=== PATIENT | male | born 1950 | race Caucasian/White ===

== ENCOUNTER 2017-07-22 09:55 | Outpatient (CLI) | payer MEDICARE | END 2017-07-22 09:56 | disposition home or self-care (01) | LOC: CTENTCT 09:55 | PROVIDERS: ATTEND Otolaryngology Plastic Surgery within the Head & Neck | DX: J32.9 Chronic sinusitis, unspecified (principal) | CPT/HCPCS: 70486 ==

== ENCOUNTER 2017-10-12 11:57 | Emergency (ER) | payer MEDICARE ==
[2017-10-12] MEDS ORDERED: Lorazepam 1 MG TAB ONE (12:37)
[2017-10-12] MEDS ORDERED: HYDROcodone/Acetaminophen 10/325 mg Tablet ONE (12:37)
--- NOTE | 2017-10-12 13:54 | CT ---
CT CERVICAL SPINE NONCONTRAST: Date: 10/12/17 HISTORY: Neck injury. Prior surgery. FINDINGS: Anterior fixation is in place at the C6-7 level. Vertebral body height and alignment are maintained. Osteophytosis present throughout the vertebral bodies and facets. Cervicothoracic junction intact. Th ere is multilevel central canal and foraminal stenoses. No acute fracture or dislocation. IMPRESSION: Postoperative and degenerative changes cervical spine. No acute osseous abnormalities are demonstrate d. POS: [facility]
== END 2017-10-12 13:49 | disposition home or self-care (01) ==
LOC: SCSER 11:57
DX: M43.6 Torticollis (principal); M62.838 Other muscle spasm; I10 Essential (primary) hypertension; N40.0 Benign prostatic hyperplasia without lower urinary tract symptoms; Z79.899 Other long term (current) drug therapy
CPT/HCPCS: 72125

== ENCOUNTER 2018-04-06 17:07 | Emergency (ER) | payer MEDICARE ==
[2018-04-06] MEDS ORDERED: Lidocaine 1% PF 5 ML VIAL ONE (17:35)
[2018-04-06] MEDS ORDERED: Lidocaine 1% w/Epinephrine 1:100K 20 ML VIAL ONE (17:37)
[2018-04-06] MEDS ORDERED: Adacel (T-DAP) 0.5 ML VIAL ONE (17:45)
[2018-04-06] MEDS ORDERED: Bacitracin Zinc 1 Packet ONE (18:21)
== END 2018-04-06 18:28 | disposition home or self-care (01) ==
LOC: SCSER 17:07
DX: S61.213A Laceration without foreign body of left middle finger without damage to nail, initial encounter (principal); I10 Essential (primary) hypertension; Z23 Encounter for immunization; W29.8XXA Contact with other powered hand tools and household machinery, initial encounter; Y92.009 Unspecified place in unspecified non-institutional (private) residence as the place of occurrence of the external cause
CPT/HCPCS: 12001; 90471; 90715; J2001

== ENCOUNTER 2018-04-16 14:49 | Observation (INO) | payer MEDICARE ==
--- NOTE | 2018-04-16 15:49 | RAD ---
RONTAL VIEW CHEST: Indication: Dyspnea. FINDINGS: There is elevation of the right hemidiaphragm with adjacent linear density which indicates atelectasi s. Left lung is clear. Cardiac silhouette is accentuated with portable technique. IMPRESSION: Elevation of the right hemidiaphragm with adjacent, mild atelectasis. POS: [facility]
[2018-04-16 15:58] LABS: #Basophils 0.1 thou/uL (0.0-0.2); #Eosinphils 0.3 thou/uL (0.0-0.7); #Lymphocytes 2.1 thou/uL (1.20-3.40); #Monocytes 0.9 thou/uL (0.11-0.59); #Neutrophils 4.9 thou/uL (1.40-6.50); %Basophils 1.1 % (0.0-1.0); %Eosinophils 3.2 % (0.0-10.0); %Lymphocytes 25.3 % (21.0-51.0); %Monocytes 10.9 % (0.0-10.0); %Neutrophils 59.6 % (42.0-75.0); Hemoglobin 15.2 g/dL (14.0-18.0); Mean Corpuscular HGB CONC 32.5 g/dL (32.0-36.0); Mean Corpuscular Hemoglobin 30.9 pg (27.0-31.0); Mean Platelet Volume 7.7 fL (7.4-10.4); Platelet Count 221 thou/uL (130-400); RBC Distribution Width 12.1 % (11.5-14.5); Red Blood Cell (RBC) Count 4.91 mill/uL (4.70-6.10); White Blood Cell (WBC) Count 8.2 thou/uL (4.8-10.8)
[2018-04-16 16:20] LABS: ALT (SGPT) 29 U/L (8-55); AST (SGOT) 27 U/L (5-34); Albumin 4.4 g/dL (3.4-4.8); Alkaline Phosphatase 76 U/L (40-150); Anion Gap 13 mmol/L (10-20); BUN (Urea Nitrogen) 15 mg/dL (8.4-25.7); Bilirubin, Total 0.4 mg/dL (0.2-1.2); Calc. Creatinine Clearance 0 mL/min (70-130); Calcium 9.6 mg/dL (7.8-10.44); Carbon Dioxide 31 mmol/L (23-31); Chloride 101 mmol/L (98-107); Estimated GFR-MDRD 65; Globulin 3.1 g/dL (2.4-3.5); Glucose 113 mg/dL (80-115); Potassium 4.6 mmol/L (3.5-5.1); Protein, Total 7.5 g/dL (5.8-8.1); Sodium 140 mmol/L (136-145)
[2018-04-16 16:24] LABS: CKMB 1.3 ng/mL (0-6.6); Troponin I Less than 0.010 ng/mL (< 0.028)
[2018-04-16] MEDS ORDERED: Iopamidol 370 76% 50 ML VIAL FS ONE (16:31)
--- NOTE | 2018-04-16 17:47 | CT ---
CTA CHEST WITH CONTRAST WITH 3D VOLUME RENDERING CT ABDOMEN WITH CONTRAST 04/16/18 INDICATION: Dyspnea. FINDINGS: There is no evidence of a large, central filling defect of the pulmonary arteries. Scattered areas of mild pulmonary parenchymal heterogeneity are present, some of which relates to motion artifact. Ther e are also scattered areas of linear parenchymal density indicative of atelectasis. There is no effus ion or pneumothorax. Mild vascular calcification is present. Partially imaged intra-abdominal cathete r related to gastric band is seen. Low attenuation of the imaged hepatic parenchyma is compatible wit h hepatic steatosis. Otherwise the imaged abdomen reveals no evidence of an acute process. Nodular de nsity adjacent the medial aspect of the anterior spleen indicates splenule. IMPRESSION: 1. No evidence of a large, central pulmonary embolus. 2. Additional details are described above. POS: [facility]
[2018-04-16] MEDS ORDERED: Ondansetron PF 4 MG/2 ML Vial IVP PRN (18:55)
[2018-04-16] MEDS ORDERED: Acetaminophen 650 MG Suppository PR PRN (18:55)
[2018-04-16] MEDS ORDERED: Nitroglycerin 0.4 MG TAB (25 Tab Bottle) PO PRN (18:55)
[2018-04-16] MEDS ORDERED: Senokot S 8.6-50 MG TAB PO PRN (18:55)
--- NOTE | 2018-04-16 19:29 | HP ---
DATE OF ADMISSION: 04/16/2018 PRIMARY CARE PROVIDER: Toney Joseph D.O. CHIEF COMPLAINT: Shortness of breath. HISTORY OF PRESENT ILLNESS: Mr. Siu is a pleasant 67-year-old gentleman, who was seen at [facility] on 04/16/2018. He was sent to the emergency room by his primary care provider because he has been having shortness o f breath over the last 2-3 weeks. 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 He denies having any chest pain. He report s that his shortness of breath is worse with exertion. He denies having any orthopnea or paroxysmal nocturnal dyspnea. He denies any fevers. He reports that about 1.5 weeks ago, he had GI symptoms of nausea and vomiting. He also reports that at that time, he had nasal congestion and was spitting gr een phlegm. These symptoms lasted 5 days and resolved. He also reports that he has been gradually gaining weight. He has a history of gastric banding. He reports some discomfort over the left upper quadrant, which has been going on for a while. REVIEW OF SYSTEMS: All other systems reviewed and found to be negative. PAST MEDICAL HISTORY: Hypertension, benign prostate hypertrophy, rosacea and obstructive sleep apnea syndrome, on CPAP therapy. PAST SURGICAL HISTORY: Right knee replacement, neck surgery, right eye surgery status post injury, r ight arm surgery, left shoulder surgery, appendectomy, tonsillectomy and laparoscopic gastric banding . SOCIAL HISTORY: Occasional alcohol use. No tobacco use or recreational drug use. FAMILY HISTORY: Significant for lung cancer in his father. CODE STATUS: I discussed his code status. He is full code. ALLERGIES: No known drug allergies. CURRENT MEDICATIONS: Lovastatin 50 mg daily, terazosin 10 mg 2 times a day and doxycycline as needed . PHYSICAL EXAMINATION: GENERAL: Mr. Siu is awake and alert, not in acute distress. He is obese. VITAL SIGNS: Blood pressure is 144/86, pulse 85, respiratory rate 18 and oxygen saturation 95% on ro om air. He is afebrile. EYES: No scleral icterus. No conjunctival pallor. ENT: Moist mucosal membranes. No oropharyngeal erythema or exudates. NECK: Supple, nontender, trachea is midline. RESPIRATORY: Accessory muscles of breathing are not active. Chest wall movements are symmetric bila terally. LUNGS: Clear to auscultation without wheeze, rhonchi or crepitations. CARDIOVASCULAR: S1 and S2 are heard, regular. Peripheral pulses palpable. No carotid bruit, no per icardial rub. ABDOMEN: Soft, distended, mild left upper quadrant tenderness. No guarding or rigidity. Bowel soun ds are heard. NEUROLOGIC: Cranial nerves II-XII are intact. Deep tendon reflexes are 2+. MUSCULOSKELETAL: Power is 5/5 in all 4 extremities. SKIN: No rashes or subcutaneous nodules. Rosacea lesions on the face. EXTREMITIES: He has trace bilateral lower extremity edema, worse on the right. LYMPHATIC: No cervical lymphadenopathy. PSYCHIATRIC: Normal mood, normal affect. The patient is oriented to person, place and time. LABORATORY DATA: Mr. Siu's labs and investigations were reviewed. I reviewed his electrocardi ogram, which shows normal sinus rhythm, no ST changes to suggest an acute coronary syndrome. I also reviewed his chest x-ray, which does not show any pulmonary infiltrates. He does have elevation of t he right hemidiaphragm. CT angiogram of the chest did not show any evidence of large central pulmona ry embolus. He has scattered areas of linear parenchymal density indicative of atelectasis. He also appears to have hepatic steatosis. He appears to have a splenule. He has an unremarkable CBC, elevated D-dimer of 1.10, normal comprehensive metabolic profile, normal troponin I and normal BNP. ASSESSMENT AND PLAN: Mr. Siu is a pleasant 67-year-old gentleman who was seen at [facility] on 04/16/2018. His problem list includes: 1. Shortness of breath: Etiology is unclear at this time. He has a normal BNP and an unremarkable CT scan of the chest. It is possible that this is anginal equivalent. We will admit the patient on observation status for stress test. We will also check 2D echocardiogram to rule out any valvular ab normalities or pericardial effusion. 2. Benign prostate hypertrophy: I will continue home medications once clarified. 3. Dyslipidemia: We will continue statin. 4. Rosacea: The patient does not appear to have a flare, although he has a few lesions on his face. If he develops a flare, we will start doxycycline. Many thanks for allowing me to participate in your patient's care. Please feel free to contact me wi th any questions or concerns. LEVEL OF COMPLEXITY: High. LEVEL OF RISK: High.
[2018-04-16 19:41] VITALS: BMI 41.1
[2018-04-16 19:49] LABS: Troponin I Less than 0.010 ng/mL (< 0.028)
[2018-04-16 22:46] LABS: Troponin I Less than 0.010 ng/mL (< 0.028)
[2018-04-17 04:25] LABS: #Basophils 0.1 thou/uL (0.0-0.2); #Eosinphils 0.4 thou/uL (0.0-0.7); #Lymphocytes 2.1 thou/uL (1.20-3.40); #Monocytes 0.8 thou/uL (0.11-0.59); #Neutrophils 4.1 thou/uL (1.40-6.50); %Basophils 1.2 % (0.0-1.0); %Eosinophils 5.5 % (0.0-10.0); %Monocytes 11.1 % (0.0-10.0); %Neutrophils 54.2 % (42.0-75.0); Hemoglobin 14.4 g/dL (14.0-18.0); Mean Corpuscular HGB CONC 32.9 g/dL (32.0-36.0); Mean Corpuscular Hemoglobin 31.3 pg (27.0-31.0); Mean Corpuscular Volume 95.1 fL (78.0-98.0); Mean Platelet Volume 7.8 fL (7.4-10.4); Platelet Count 206 thou/uL (130-400); RBC Distribution Width 12.2 % (11.5-14.5); Red Blood Cell (RBC) Count 4.61 mill/uL (4.70-6.10); White Blood Cell (WBC) Count 7.5 thou/uL (4.8-10.8)
[2018-04-17] MEDS: Acetaminophen 325 MG TAB PO PRN ×2 (04:47→11:33)
[2018-04-17 05:00] LABS: Anion Gap 10 mmol/L (10-20); BUN (Urea Nitrogen) 19 mg/dL (8.4-25.7); Calc. Creatinine Clearance 156 mL/min (70-130); Calcium 9.1 mg/dL (7.8-10.44); Carbon Dioxide 28 mmol/L (23-31); Chloride 103 mmol/L (98-107); Estimated GFR-MDRD 82; Glucose 112 mg/dL (80-115); Potassium 4.3 mmol/L (3.5-5.1); Sodium 137 mmol/L (136-145)
[2018-04-17] MEDS ORDERED: Aspirin 325 MG TAB PO SCH (08:00)
[2018-04-17 08:04] VITALS: TEMP 97.7
[2018-04-17] MEDS ORDERED: Prevnar 13-Val Conj/PF 0.5 ML SYRINGE IM ONE (09:00)
[2018-04-17] MEDS ORDERED: Enoxaparin Sodium 40 MG/0.4 ML SYRINGE SC SCH (09:00)
[2018-04-17] MEDS ORDERED: Regadenoson 0.4 MG/5 ML SYRINGE ONE (10:22)
[2018-04-17] MEDS ORDERED: Terazosin HCl 5 MG CAP PO SCH ×2 (11:30→21:00)
[2018-04-17] MEDS ORDERED: Losartan 25 MG TAB PO SCH (11:30)
[2018-04-17 11:58] VITALS: BP 159/75
--- NOTE | 2018-04-17 13:59 | NM ---
STRESS ONLY NUCLEAR MEDICINE CARDIAC SCAN WITH EJECTION FRACTION AND WALL MOTION: Date: 04/17/18 HISTORY: 67-year-old male with shortness of breath, questionable angina. TECHNIQUE: Lexiscan sestamibi study was performed with stress only. Patient was injected with 31.2 mCi technetiu m-99m sestamibi intravenously for stress only imaging. FINDINGS: No scan evidence for infarct or ischemia. LHR is 0.35. EDV is 90 mL. Ejection fraction is 67%. MYOCARDIAL PERFUSION WALL MOTION: Wall motion is normal. IMPRESSION: Unremarkable stress only nuclear medicine cardiac SPECT with ejection fraction and wall motion. POS: [facility]
--- NOTE | 2018-04-17 14:27 | PDOC.EVN ---
Event Note - Event Note Event Note: care and plan discussed with Mika Urban NP
[2018-04-18] MEDS ORDERED: Losartan 25 MG TAB PO SCH (09:00)
--- NOTE | 2018-04-18 14:02 | DIS ---
DATE OF ADMISSION: 04/16/2018 DATE OF DISCHARGE: 04/17/2018 PRIMARY CARE PHYSICIAN: Dr. Toney Joseph. PROCEDURES: 1. The patient had a nuclear stress test, chemical Lexiscan study with stress only, scan findings: No evidence of infarct or ischemia. Ejection fraction is 67%. Wall motion is normal. Impression was unremarkable stress only, nuclear cardiac SPECT with ejection fraction and wall motion. The patient also had a CT chest angio, which showed no evidence of a large central pulmonary emboli. 2. Scattered areas of linear parenchymal density indicative of atelectasis. No effusion or pneumothorax. The patient also had a chest x-ray, which showed elevation of right hemidiaphragm with adjacent mild atelectasis. DISCHARGE DIAGNOSES: 1. Shortness of breath, noncardiac in nature. 2. Benign prostatic hypertrophy without lower tract symptoms. 3. Hyperlipidemia. 4. Rosacea. PHYSICAL EXAMINATION: GENERAL: On day of discharge, Mr. Siu is awake, alert, not in any acute distress. VITAL SIGNS: Temperature 98.4, pulse 76, respirations 12, 94% on room air. He is afebrile. EYES: Pupils are equal, reactive to light. Extraocular muscles are intact. ENT: Moist mucosal membranes. NECK: Supple, nontender. Trachea is midline. RESPIRATORY: Accessory muscles of breathing are not active. Chest wall movements are symmetrical. Breath sounds are clear bilaterally. CARDIOVASCULAR: S1 and S2, regular rhythm. Peripheral pulses are palpable. ABDOMEN: Soft, nontender and nondistended. NEUROLOGIC: Cranial nerves II-XII are intact. No focal sensory changes. MUSCULOSKELETAL: Power is 5/5 in all extremities. SKIN: No rashes, has mild rosacea lesions on the face. EXTREMITIES: Trace bilateral lower edema, worse on the right. LYMPHATIC: No lymphadenopathy. PSYCHIATRIC: Normal mood and affect. The patient is alert to person, place, and time. HOSPITAL COURSE: The patient was admitted through the emergency room who was sent by his primary care provider because he had been having shortness of breath over the last 2-3 weeks. 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 He denies any chest pain. He denies any orthopnea or nocturnal dyspnea. He denies any fevers. He reports about a week and a half ago, he had some GI symptoms of nausea, vomiting along with some nasal congestion and spitting up green phlegm. Reports that these symptoms have lasted about 5 days and resolved. He reports that he has also been gradually gaining some weight. Has a history of gastric banding. He was admitted to the observation unit for a stress test which was negative. An echo, it was decided not to be ordered due to the negative stress test and considered noncontributory to present admission. The patient could have an echocardiogram done on an outpatient basis as needed. The patient also had three troponins which were negative. CTA of the chest which was negative for PE. Vital signs have remained within normal limits. The patient will be discharged home to follow up with Dr. Zaragoza for further management as needed. Home medications will be continued. These include lovastatin 50 mg p.o. daily, terazosin 10 mg 2 times daily and doxycycline as needed. ALLERGIES: LACTOSE INTOLERANT. DISPOSITION CONDITION: Stable. DISCHARGE INSTRUCTIONS: Patient will be discharged home. Referral, the patient to see Dr. Joseph within the next week. ETHEL
== END 2018-04-17 15:14 | disposition home or self-care (01) ==
LOC: ERS 14:49 → 2SW 19:30
PROVIDERS: ADMIT Internal Medicine; ATTEND Internal Medicine
DX: R06.02 Shortness of breath (principal); N40.0 Benign prostatic hyperplasia without lower urinary tract symptoms; G47.33 Obstructive sleep apnea (adult) (pediatric); L71.9 Rosacea, unspecified; I10 Essential (primary) hypertension; R10.12 Left upper quadrant pain; E73.9 Lactose intolerance, unspecified; Z79.899 Other long term (current) drug therapy; Z98.84 Bariatric surgery status; Z99.89 Dependence on other enabling machines and devices
CPT/HCPCS: 71045; 71275; 78452; 80048; 80053; 82553; 83880; 84484 ×2; 85025 ×2; 85379; 90670; 93005; 93017; 96372; 99285; A9500; G0009; G0378 ×2; 36415; 90471; 99214; G0463; J1650; J2785

== ENCOUNTER 2018-04-24 15:16 | Outpatient (CLI) | payer MEDICARE ==
--- NOTE | 2018-04-24 16:01 | ULT ---
ULTRASOUND WITH DOPPLER DUPLEX VENOUS LOWER EXTREMITY BILATERAL 04/24/18 CPT: 31665 ICD-10-PCS: B54D HISTORY: Edema. TECHNIQUE: Color flow Doppler, spectral waveform analysis of pulsed Doppler, and stuart-scale imaging with kisha ailyn and augmentation, were used to evaluate the bilateral common femoral, femoral, popliteal, engagement director ior tibial, and superficial femoral, veins; and the proximal portions of the profunda femoral and gre ater saphenous, veins. FINDINGS: Appropriate compressibility and flow within the imaged deep vein system of each lower extremity. IMPRESSION: No DVT. POS: [facility]
== END 2018-04-24 15:17 | disposition home or self-care (01) ==
LOC: BICULT 15:16
PROVIDERS: ATTEND Family Medicine
DX: R60.0 Localized edema (principal)
CPT/HCPCS: 93970

== ENCOUNTER 2018-05-07 13:22 | Outpatient (CLI) | payer MEDICARE ==
--- NOTE | 2018-05-07 15:37 | MRI ---
LUMBAR SPINE MRI WITHOUT IV CONTRAST: 05/07/18 HISTORY: 67-year-old male with history of cervical spondylosis with myelopathy, acute low back pain, M54. 5. Generalized disc desiccation changes and ligament and facet hypertrophic changes are noted. Conus med ullaris region is unremarkable terminating at L1-L2. L1-L2 demonstrates no significant canal or foraminal stenosis. L2-L3: Mild lateral recess stenosis without significant foraminal stenosis. L3-L4: Mild lateral recess stenosis and mild bilateral foraminal stenosis. L4-L5: Diffuse disc bulging with more marked ligament and facet hypertrophic changes with moderate ce ntral canal and moderate to severe lateral recess stenosis and moderate bilateral foraminal stenosis, worse on the left side. Mild central type I end plate changes involving the superior end plate of L5 . L5-S1: No significant central canal stenosis. Moderate bilateral foraminal stenosis. IMPRESSION: Variable severity multilevel canal, lateral recess, and foraminal stenosis most marked at L4-L5 with some minimal type I end plate changes involving the superior end plate of L5. POS: [facility]
== END 2018-05-07 13:23 | disposition home or self-care (01) ==
LOC: TBSIIMAG 13:22
PROVIDERS: ATTEND Neurological Surgery
DX: M54.5 Low back pain (principal); M48.061 Spinal stenosis, lumbar region without neurogenic claudication
CPT/HCPCS: 72148

== ENCOUNTER 2018-05-14 09:03 | Outpatient (CLI) | payer MEDICARE ==
[2018-05-14] MEDS ORDERED: Gadobenate Dimeglumine 529 MG/1 ML (20ML VIAL) ONE (10:45)
--- NOTE | 2018-05-14 12:24 | MRI ---
MRI CERVICAL SPINE WITH AND WITHOUT CONTRAST: HISTORY: Previous cervical fusion. Cervical radiculopathy. Spondylosis with myelopathy. COMPARISON: None. CORRELATION: CT cervical spine from 10/12/2017. TECHNIQUE: Pre and post contrast cervical spine MRI is performed. Multisequential, multiplanar imaging is perfo rmed. FINDINGS: There is appropriate T1 marrow signal intensity of the cervical vertebrae. Cervical spine vertebral body height is maintained. There is no fracture. No significant STIR hyperintensity to suggest vert ebral body edema or ligamentous injury. There is an anterior fusion plate with a transvertebral body screw at C6 and C7. There is a balloon plug at the C6-C7 disk space with what appears to be partial fusion of the C6-C7 disk space. There is 2.8 mm of anterolisthesis of C4 upon C5 and 2.1 mm of anterolisthesis of C5 upon C6. The visualized brain parenchyma, cervicomedullary junction, cervical cord, and upper thoracic cord mustafa ve normal size and signal intensity. On the post contrast images, there is no abnormal enhancement of the vertebral bodies. No abnormal e nhancement of the visualized brain parenchyma, cervicomedullary junction, cervical cord, or upper tho racic cord. C2-C3: No significant central canal stenosis. The right neural foramen is patent. Mild left forami nal narrowing due to left facet and uncovertebral hypertrophy. C3-C4: Broad-based disk bulge with a central disk protrusion. There is mass effect upon the ventral thecal sac. Subarachnoid space is maintained. No significant central canal stenosis. The right ne ural foramen is patent. Mild left foraminal narrowing due to uncovertebral and facet hypertrophy. C4-C5: Broad-based disk bulge with a central component that abuts the thecal sac. The ventral subar achnoid space is maintained. No significant mass effect upon the cervical cord. No significant cent ral canal stenosis. The right neural foramen is patent. Mild left foraminal narrowing due to left u ncovertebral hypertrophy. C5-C6: There is a broad-based disk bulge that deforms the ventral thecal sac and deforms the ventral cord. No cord signal abnormality. Mild central canal stenosis. The right neural foramen is mildly narrowed due to right uncovertebral hypertrophy. The left neural foramen is patent. C6-C7: There appears to be a broad-based osteophyte ridge, which abuts the thecal sac. Minimal defo rmity of the ventral thecal sac and ventral cord. Mild central canal stenosis. Hypertrophic changes in the right uncovertebral joint result in mild right foraminal narrowing. The left neural foramen is patent. C7-T1: There is a small central disk bulge. No significant central canal stenosis. Mild bilateral neural foraminal narrowing. IMPRESSION: 1. Fusion changes of the cervical spine, as above. There is grade 1 anterolisthesis of C4 upon C5 a nd of C5 upon C6. 2. Varying degrees of central canal stenosis and foraminal narrowing, on the basis of degenerative c hange. POS: [facility]
== END 2018-05-14 09:04 | disposition home or self-care (01) ==
LOC: TBSIIMAG 09:03
PROVIDERS: ATTEND Neurological Surgery
DX: M47.12 Other spondylosis with myelopathy, cervical region (principal); M43.12 Spondylolisthesis, cervical region; M48.02 Spinal stenosis, cervical region; M50.022 Cervical disc disorder at C5-C6 level with myelopathy; M50.03 Cervical disc disorder with myelopathy, cervicothoracic region; Z98.1 Arthrodesis status
CPT/HCPCS: 72156; 82565; A9579

== ENCOUNTER 2018-10-02 08:33 | Outpatient (CLI) | payer MEDICARE ==
[2018-10-02] MEDS ORDERED: ISOVUE-370 76%-LOCM 1 ML ONE (11:13)
--- NOTE | 2018-10-02 11:13 | CT ---
CT OF THE ABDOMEN AND PELVIS WITHOUT AND WITH CONTRAST: COMPARISON: None. HISTORY: Microscopic hematuria. TECHNIQUE: Multiple contiguous axial images were obtained in a CT of the abdomen and pelvis without and with IV contrast. Postcontrast images were obtained in nephrographic and excretory phases. Sagittal and cor onal reformats were performed. FINDINGS: There is a 1.8 cm cyst in the right kidney. No solid renal masses are seen. No calcifications are s een in either kidney. No hydronephrosis is seen. Both renal collecting systems are unremarkable wit hout filling defects. The urinary bladder is unremarkable. The patient is status post gastric band procedure with the band at the gastroesophageal junction. Th e liver, gallbladder, adrenal glands, spleen, and pancreas are unremarkable. No free air or free fluid are seen in the abdomen or pelvis. There is a subtle stranding appearance of the small bowel mesentery which is nonspecific. No abdominal or pelvic lymphadenopathy are seen. Degenerative changes are seen in the spine. The visualized inferior thorax is unremarkable. IMPRESSION: 1. Right renal cyst. 2. Nonspecific stranding change of the small mesentery may e normal for this patient. This can also be seen with sclerosing mesenteritis. POS: [facility]
== END 2018-10-02 08:34 | disposition home or self-care (01) ==
LOC: BICCT 08:33
PROVIDERS: ATTEND Urology
DX: R31.29 Other microscopic hematuria (principal); N28.1 Cyst of kidney, acquired
CPT/HCPCS: 74178; 82565; Q9966

== ENCOUNTER 2018-10-03 08:29 | Outpatient (CLI) | payer MEDICARE ==
--- NOTE | 2018-10-03 08:44 | RAD ---
Chest 2 views HISTORY: Dyspnea. COMPARISON: 04/16/2018. FINDINGS: Cardiac silhouette and pulmonary vasculature are unremarkable. Mediastinum is midline with postoperative changes of the cervical spine. Linear atelectasis/scarring at the right lung base is stable. Slight elevation of the right hemidiaphragm is unchanged in appearance. No confluent airspace consolidation, pneumothorax, or pleural fluid are apparent. Degenerative changes of the thoracic spine. IMPRESSION: Chronic-type findings are stable. No active cardiopulmonary abnormalities are demonstrate d.
== END 2018-10-03 08:30 | disposition home or self-care (01) ==
LOC: RAD-FRANK 08:29
PROVIDERS: ATTEND Nurse Practitioner Family
DX: R06.02 Shortness of breath (principal); M47.814 Spondylosis without myelopathy or radiculopathy, thoracic region; J98.4 Other disorders of lung; Q79.1 Other congenital malformations of diaphragm
CPT/HCPCS: 71046

== ENCOUNTER 2018-10-06 12:19 | Outpatient (CLI) | payer MEDICARE ==
[2018-10-06] MEDS ORDERED: Iopamidol 370 76% 100 ML VIAL ONE (13:42)
--- NOTE | 2018-10-06 15:28 | CT ---
CT PULMONARY ANGIOGRAM CHEST WITH 3D RENDERING: HISTORY: Elevated D-dimer, shortness of breath. FINDINGS: There is evidence for nonspecific bilateral mosaic appearance to the lung zones. Linear parenchymal changes noted in both bases worse in the right base with some right hemidiaphragm elevation, evidence for some subsegmental atelectasis and/or chronic change. There is minimal motion artifact with some degradation of image quality, particularly in evaluating t he smaller distal pulmonary artery branches. No convincing CT evidence for acute pulmonary embolism. No pleural effusion or pericardial effusion. Lap band in place. IMPRESSION: No convincing CT evidence for acute pulmonary embolism. Minimal parenchymal changes in the right bas e. Somewhat mosaic appearance to the appearance of the chest. Little change from prior exam, 018. POS: [facility]
== END 2018-10-06 12:20 | disposition home or self-care (01) ==
LOC: CT 12:19
PROVIDERS: ATTEND Nurse Practitioner Family
DX: R06.02 Shortness of breath (principal); R79.1 Abnormal coagulation profile
CPT/HCPCS: 71275; Q9967

== ENCOUNTER 2019-02-13 10:27 | Outpatient (CLI) | payer MEDICARE ==
--- NOTE | 2019-02-13 13:18 | RAD ---
CERVICAL SPINE AP LATERAL STANDARD: Date: 02/13/19 INDICATION: Pain. FINDINGS: There is ACDF of C6-7. No acute hardware complication identified. Lateral masses of C1 are appropriat hilary aligned. Dens is intact where visualized. There is moderate multilevel degenerative change throug hout the cervical spine with multilevel osseous fusion from bridging osteophytes. IMPRESSION: Prominent degenerative change of the postoperative cervical spine, without evidence of acute fracture . POS: [facility]
== END 2019-02-13 10:28 | disposition home or self-care (01) ==
LOC: RAD-FRANK 10:27
PROVIDERS: ATTEND Nurse Practitioner Family
DX: M54.2 Cervicalgia (principal); M47.812 Spondylosis without myelopathy or radiculopathy, cervical region; Z98.890 Other specified postprocedural states
CPT/HCPCS: 72040

== ENCOUNTER 2019-03-26 07:43 | Outpatient (CLI) | payer MEDICARE ==
--- NOTE | 2019-03-26 09:50 | MRI ---
MRI CERVICAL SPINE NONCONTRAST: 03/26/2019 HISTORY: A 68-year-old male with ICD-10: M54.12, cervical radiculopathy. Cervicalgia radiating to right elbo w with hypesthesia (numbness). FINDINGS: Reversal of curvature of mid-lower cervical spine. Vertebral body heights are maintained. Cervical sp inal cord size and signal normal. C1-C2: No high grade central stenosis. C2-C3: Disk space maintained. Mild ligamentum flavum thickening. Mild central spinal canal stenosis. No right neural foraminal stenosis. Moderate bilateral facet DJD. Mild left neural foraminal stenosis . C3-C4: Disk space maintained. Thickened ligamentum flavum indents the dorsal surface of the spinal co rd. Mild to moderate central spinal canal stenosis. Severe right facet DJD. Mild bone marrow edema in volving the right C3-C4 facet complex. Moderate left facet DJD. Moderate right neural foraminal steno sis. Moderate to severe left neural foraminal stenosis. C4-C5: Bony hypertrophy of left facet complex without bone marrow edema. Probable ankylosis across th e left facet joint. Mild to moderate right facet DJD. Minimal grade 1 anterolisthesis of C4 on C5. Di sk space maintained. Mild central spinal canal stenosis. Mild to moderate bilateral neural foraminal stenosis. C5-C6: Mild disk space narrowing anteriorly. Tiny focal central disk protrusion or disk-osteophyte co mplex abuts the ventral surface of the spinal cord. No significant central spinal canal stenosis. Nor mal right facet joint. Mild to moderate left facet DJD. No right neural foraminal stenosis. Mild to m oderate left neural foraminal stenosis. Uncinate process osteophytes bilaterally. C6-C7: ACDF hardware at the vertebral bodies. Fusion of vertebral bodies across obliterated disk spac e. No high grade facet DJD. No central or significant neural foraminal stenosis. C7-T1: Disk space maintained. Shallow broad-based central and bilateral paracentral disk protrusion w ithout high grade central spinal canal stenosis. Moderate bilateral facet DJD. No significant neural foraminal stenosis on the right. Mild left neural foraminal stenosis. IMPRESSION: 1. Cervical spondylosis, mostly mild. Notable exception is the high grade right upper multilevel fac et osteoarthrosis. 2. Neural foraminal stenosis of varying degrees. 3. Chronic mild indentation of the dorsal surface of the spinal cord at C3-C4 by thickened ligamentum flavum. POS: [facility]
== END 2019-03-26 07:44 | disposition home or self-care (01) ==
LOC: TBSIIMAG 07:43
PROVIDERS: ATTEND Neurological Surgery
DX: M47.22 Other spondylosis with radiculopathy, cervical region (principal); M48.02 Spinal stenosis, cervical region
CPT/HCPCS: 72141

== ENCOUNTER 2019-04-01 12:30 | Inpatient (IN) | payer MEDICARE ==
[2019-04-01 10:56] VITALS: BMI 38.1
[2019-04-06] MEDS ORDERED: Fentanyl 100 MCG/2 ML VIAL ONE ×4 (06:48→12:43)
[2019-04-06] MEDS ORDERED: Sodium Chloride 0.9% 10 ML ONE (06:53)
[2019-04-06] MEDS ORDERED: HYDROmorphone 2 MG/ML VIAL ONE (08:49)
[2019-04-06] MEDS ORDERED: Promethazine HCl 25 MG/ML VIAL IM PRN ×2 (09:42→10:05)
[2019-04-06] MEDS ORDERED: Tamsulosin HCl 0.4 MG CAP ONE (09:42)
[2019-04-06] MEDS ORDERED: Promethazine HCl 25 MG/ML VIAL SLOW IVP PRN (09:42)
[2019-04-06] MEDS ORDERED: Ondansetron HCl/PF 4 MG/2 ML Vial IVP PRN (09:42)
[2019-04-06] MEDS ORDERED: Mag-Al 1200 mg/1200 mg/30 ML UDCUP PO PRN (10:05)
[2019-04-06] MEDS ORDERED: Promethazine 25 MG TAB PO PRN (10:05)
[2019-04-06] MEDS ORDERED: Ondansetron PF 4 MG/2 ML Vial IVP PRN (10:05)
[2019-04-06] MEDS ORDERED: Milk Of Magnesia 30 ML UDCUP PO PRN (10:05)
[2019-04-06] MEDS ORDERED: Promethazine HCl 12.5 MG SUPP PR PRN (10:05)
[2019-04-06] MEDS ORDERED: diphenhydrAMINE 25 MG CAP PO PRN (10:05)
[2019-04-06] MEDS ORDERED: Morphine 4 MG/ML VIAL SLOW IVP PRN (10:05)
[2019-04-06] MEDS ORDERED: Morphine 2 MG/ML SYRINGE SLOW IVP PRN (10:05)
[2019-04-06] MEDS ORDERED: traMADol HCl 50 MG TAB PO PRN (10:05)
[2019-04-06] MEDS ORDERED: diphenhydrAMINE 50 MG/ML VIAL IVP PRN (10:05)
[2019-04-06] MEDS ORDERED: HYDROcodone/Acetaminophen 10/325 mg Tablet PO PRN ×2 (10:05)
[2019-04-06] MEDS ORDERED: tiZANidine HCl 4 MG TAB PO PRN (10:05)
--- NOTE | 2019-04-06 11:08 | OP ---
DATE OF PROCEDURE: 04/06/2019 [employer] [employer] HELPER: Giovany Bee PA-C PROCEDURES PERFORMED: Removal of hardware C6-C7, exploration of spinal fusion C6-C7, anterior cervical diskectomy C5-C6, interbody arthrodesis, intervertebral biomechanical device, local morselized autograft, demineralized bone matrix, and anterior titanium instrumentation C5-C6. DESCRIPTION OF PROCEDURE: The patient was brought to the operating room and intubated. He was positioned supine with head in modest extension on a gel-filled donut. Incision was reopened. The procedure was quite difficult given his very large body habitus. We identified the previous plate and this was removed. We then placed distraction across C5-C6. The bone was quite soft and vascular, it was difficult to get any meaningful distraction across C5-C6. Ultimately, we were able to debride the intervertebral disk at C5-C6 entirely. The bony endplates were then decorticated for the purpose of arthrodesis and appropriate-sized intervertebral biomechanical PEEK device was brought into the field, filled with demineralized bone matrix, local morselized autograft, and tapped in place securely at C5-C6. Next, an anterior plate was brought into the field and secured to C5 and C6 using two 14 mm screws at each level. The wound was then extensively irrigated. MAC hemostasis was secured. The wound was closed in anatomic layers over drain. Job ID: [id number]
[2019-04-06] MEDS ORDERED: Morphine 4 MG/ML VIAL ONE ×2 (14:53→16:06)
[2019-04-06] MEDS ORDERED: Rocuronium Bromide 10 MG/ML (10ML VIAL) ONE (15:54)
[2019-04-06] MEDS ORDERED: Glycopyrrolate 0.2 MG/ML 5 ML SYRINGE ONE (15:54)
[2019-04-06] MEDS ORDERED: Dexamethasone 20 MG/5 ML VIAL ONE (15:54)
[2019-04-06] MEDS ORDERED: Lidocaine 1% PF 5 ML VIAL ONE (15:54)
[2019-04-06] MEDS ORDERED: Ondansetron PF 4 MG/2 ML Vial ONE (15:54)
[2019-04-06] MEDS ORDERED: Labetalol HCl 100 MG/20 ML VIAL ONE (15:54)
[2019-04-06] MEDS ORDERED: PROPOFOL 200 MG/20 ML VIAL ONE (15:54)
[2019-04-06] MEDS: CEFAZOLIN 2 GM in Premix Bag 1 BAG IVPB SCH ×2 (19:22→23:39)
[2019-04-06] MEDS: Sodium Chloride 0.9% 1,000 ML IV SCH ×2 (19:23→23:39)
[2019-04-06] MEDS: traMADol HCl 50 MG TAB PO PRN (20:15)
[2019-04-06] MEDS ORDERED: cloNIDine 0.2 MG TAB PO SCH (21:00)
[2019-04-06] MEDS ORDERED: Montelukast Sodium 10 mg Tablet PO SCH (21:00)
[2019-04-07] MEDS: traMADol HCl 50 MG TAB PO PRN ×2 (03:46→09:25)
[2019-04-07] MEDS ORDERED: Tamsulosin HCl 0.4 MG CAP PO SCH (06:00)
[2019-04-07] MEDS ORDERED: Mometasone/Formoterol 120 PUFF INHALER INH SCH (06:30)
[2019-04-07 07:34] VITALS: BP 147/87; TEMP 98.1
[2019-04-07] MEDS ORDERED: Fluticasone Propionate Nasal Spray 16 gm Bottle NASAL SCH (09:00)
[2019-04-07] MEDS ORDERED: Losartan 25 MG TAB PO SCH (09:00)
[2019-04-07] MEDS ORDERED: FLU VACC TS2019-20(65YR UP)/PF 180 MCG/0.5 ML SYRINGE IM ONE (09:00)
--- NOTE | 2019-04-07 16:27 | DIS ---
DATE OF ADMISSION: 04/06/2019 DATE OF DISCHARGE: 04/07/2019 The patient is a 68-year-old male. He recently seen in our office for progressive neck pain and right-sided cervical radiculopathy, who underwent C5-C6 ACDF on 04/06/2019. Following surgery, he was transitioned to the Med/Surg floor, where his pain is well controlled with p.o. medications, he was tolerating regular diet, and he was voiding appropriately. He had TERRY drain placed intraoperatively with only 35 mL over the first night. This was removed on postoperative day #1. The patient was otherwise doing well and dismissed to home on postoperative day #1. I have discussed home care and precautions. We will follow up with the patient in 2 weeks with our office since the x-rays at that time. Job ID: [id number]
== END 2019-04-07 10:00 | disposition home or self-care (01) | DRG 473 ==
LOC: SURG A 04-06 06:27 → EDSTATUS 04-06 12:30 → SURG B 04-06 14:51
PROVIDERS: ADMIT Neurological Surgery; ATTEND Neurological Surgery
PROC: 0RG10A0 Fusion of Cervical Vertebral Joint with Interbody Fusion Device, Anterior Approach, Anterior Column, Open Approach (ICD-10-PCS; principal; 2019-04-06)
PROC: 0RB30ZZ Excision of Cervical Vertebral Disc, Open Approach (ICD-10-PCS; 2019-04-06)
PROC: 0PP304Z Removal of Internal Fixation Device from Cervical Vertebra, Open Approach (ICD-10-PCS; 2019-04-06)
DX: M47.22 Other spondylosis with radiculopathy, cervical region (principal); I10 Essential (primary) hypertension; J45.909 Unspecified asthma, uncomplicated; Z88.0 Allergy status to penicillin; Z88.8 Allergy status to other drugs, medicaments and biological substances
CPT/HCPCS: 76000; 90471; 90662; C1713; C1776; G0008; J0690; J1170; J2270; J3010; J3490; J7620

== ENCOUNTER 2019-04-23 10:18 | Outpatient (CLI) | payer MEDICARE ==
--- NOTE | 2019-04-23 12:19 | RAD ---
CERVICAL SPINE SERIES 3 VIEWS: Date: 04/23/19 HISTORY: Follow-up surgery. COMPARISON: 02/13/19 study. FINDINGS: Since the previous examination, there has been removal of the anterior plate and screws that was note d at the C6-7 level, and there are now plate and screws placed at C4-5. Markers of the disc implant a re within the confines of the disc level. Surgical clips are seen along the right side of the neck. IMPRESSION: Postoperative changes at the C4-5 level. POS: TPC
== END 2019-04-23 10:19 | disposition home or self-care (01) ==
LOC: TBSIIMAG 10:18
PROVIDERS: ATTEND Neurological Surgery
DX: M54.12 Radiculopathy, cervical region (principal); Z98.890 Other specified postprocedural states
CPT/HCPCS: 72040

== ENCOUNTER 2019-05-22 11:52 | Outpatient (CLI) | payer MEDICARE ==
--- NOTE | 2019-05-22 13:28 | CT ---
CT BRAIN NONCONTRAST: DATE: 05/22/2019 12:13 PM HISTORY: 68-year-old male with headache and dysarthria. COMPARISON: None FINDINGS: There is no evidence of acute intra-axial or extra-axial hemorrhage. There is an approximately 2 x 1. 5 cm region of moderately low attenuation involving the left basal ganglia and left caudate nucleus. This is minimally indents the lateral edge of the left lateral ventricle. Otherwise there is no midline shift or any other mass effect. There is no extra-axial fluid collection. The ventricles are normal in size and configuration. The tympanomastoid cavities, and the upper portions of the paranasal sinuses included in these images, are grossly clear. Calvarium is intact. IMPRESSION: Focal region of edema in the left corpus striatum. This is probably an acute or subacute infarction i nvolving lenticulostriate branch territory of left middle cerebral artery. There is a possibility that this could be neoplastic tumor or infection. Consider MRI of brain with and without contrast.
== END 2019-05-22 11:53 | disposition home or self-care (01) ==
LOC: CT 11:52
PROVIDERS: ATTEND Nurse Practitioner Family
DX: R47.01 Aphasia (principal); G93.6 Cerebral edema
CPT/HCPCS: 70450

== ENCOUNTER 2020-01-07 13:32 | Outpatient (CLI) | payer MEDICARE ==
--- NOTE | 2020-01-07 13:55 | RAD ---
RADIOGRAPH CHEST 2 VIEWS: DATE: 01/07/2020 HISTORY: 69-year-old male with dyspnea FINDINGS: There is no airspace density, pulmonary edema, pleural effusion, pneumothorax, or cardiomegaly. IMPRESSION: No acute cardiopulmonary findings.
== END 2020-01-07 13:33 | disposition home or self-care (01) ==
LOC: BICRAD 13:32
PROVIDERS: ATTEND Internal Medicine Pulmonary Disease
DX: R06.00 Dyspnea, unspecified (principal)
CPT/HCPCS: 71046

== ENCOUNTER 2020-04-14 06:37 | Outpatient (CLI) | payer MEDICARE ==
[2020-04-14 12:42] LABS: #Basophils 0.1 10x3/uL (0.0-0.2); #Eosinphils 0.2 10x3/uL (0.0-0.5); #Monocytes 0.9 10x3/uL (0.0-1.1); #Neutrophils 5.9 10x3/uL (1.5-8.4); %Basophils 0.6 % (0.0-2.0); %Eosinophils 1.7 % (0.0-6.0); %Lymphocytes 24.4 % (18.0-47.0); %Monocytes 9.6 % (0.0-10.0); %Neutrophils 62.9 % (40.0-75.0); Hemoglobin 14.9 g/dL (14.0-18.0); Mean Corpuscular HGB CONC 33.2 G/DL (32.0-36.0); Mean Corpuscular Hemoglobin 31.2 PG (27.0-33.0); Mean Corpuscular Volume 94.1 fl (80.0-100.0); Mean Platelet Volume 10.2 fl (7.4-10.4); Platelet Count 217 10x3/uL (130-400); RBC Distribution Width 13.2 % (11.5-14.5); Red Blood Cell (RBC) Count 4.77 10x6/uL (4.40-5.80); White Blood Cell (WBC) Count 9.3 10x3/uL (4.5-11.0)
[2020-04-14 12:49] LABS: Prothrombin Time 10.3 sec (9.5-12.1)
[2020-04-14 13:08] LABS: Anion Gap 16 mmol/L (10-20); BUN (Urea Nitrogen) 13 mg/dL (8.4-25.7); Calc. Creatinine Clearance 0 mL/min (70-130); Calcium 9.2 mg/dL (7.8-10.44); Carbon Dioxide 27 mmol/L (23-31); Chloride 99 mmol/L (98-107); Estimated GFR-MDRD Greater than 90; Glucose 104 mg/dL (80-115); Potassium 4.4 mmol/L (3.5-5.1); Sodium 138 mmol/L (136-145)
[2020-04-15 15:01] LABS: SARS-CoV-2 MS2 Positive; SARS-CoV-2 N Gene Negative; SARS-CoV-2 S Gene Negative; SARS-CoV-2 by NAA Not Detected (NotDetected); SARS-CoV-2 orf1ab Negative
--- NOTE | 2020-04-17 20:53 | EKG ---
Test Reason : EKG Blood Pressure : / mmHG Vent. Rate : 075 BPM Atrial Rate : 075 BPM P-R Int : 148 ms QRS Dur : 088 ms QT Int : 396 ms P-R-T Axes : 052 -21 063 degrees QTc Int : 442 ms Normal sinus rhythm Normal ECG No previous ECGs available Confirmed by Mae WHITTAKER ([id number]) on 04/17/2020 8:53:01 PM Referred By: ELVIA Confirmed By:Mae WHITTAKER
== END 2020-04-14 06:38 | disposition home or self-care (01) ==
LOC: LABBT 06:37
PROVIDERS: ATTEND Orthopaedic Surgery
DX: Z01.818 Encounter for other preprocedural examination (principal); Z20.828 Contact with and (suspected) exposure to other viral communicable diseases; S83.521A Sprain of posterior cruciate ligament of right knee, initial encounter
CPT/HCPCS: 80048; 85025; 85610; 87081; U0003; 87635; 93005; 93010

== ENCOUNTER 2020-04-14 10:30 | Inpatient (IN) | payer MEDICARE ==
[2020-04-18 14:38] VITALS: BMI 39.0
[2020-04-19] MEDS ORDERED: Tranexamic Acid 1,000 MG/10 ML VIAL ONE (08:52)
[2020-04-19] MEDS ORDERED: Sodium Chloride 0.9% 100 ML ONE (08:52)
[2020-04-19] MEDS ORDERED: Levofloxacin 500 mg/D5W 100 ml Premix Bag ONE (08:52)
[2020-04-19] MEDS ORDERED: Midazolam HCl 2 mg/2 ml Vial ONE (09:37)
[2020-04-19] MEDS ORDERED: Fentanyl 100 MCG/2 ML VIAL ONE ×2 (09:37→10:19)
[2020-04-19] MEDS ORDERED: Lidocaine 1% (PF) 30 ML VIAL ONE (09:42)
[2020-04-19] MEDS ORDERED: Zolpidem Tartrate 5 MG TAB PO PRN ×2 (10:01→11:30)
[2020-04-19] MEDS ORDERED: Promethazine HCl 25 MG/ML VIAL IM PRN ×3 (10:01→12:45)
[2020-04-19] MEDS ORDERED: HYDROcodone/Acetaminophen 10/325 mg Tablet PO PRN ×3 (10:01→11:30)
[2020-04-19] MEDS ORDERED: Fentanyl 100 MCG/2 ML VIAL SLOW IVP PRN ×3 (10:01→11:26)
[2020-04-19] MEDS ORDERED: diphenhydrAMINE 25 MG CAP PO PRN (10:01)
[2020-04-19] MEDS ORDERED: Ondansetron PF 4 MG/2 ML Vial IVP PRN ×2 (10:01→11:30)
[2020-04-19] MEDS ORDERED: traMADol HCl 50 MG TAB PO PRN ×3 (10:03→11:30)
[2020-04-19] MEDS ORDERED: tiZANidine HCl 4 MG TAB PO PRN (10:26)
[2020-04-19] MEDS ORDERED: PROPOFOL 200 MG/20 ML VIAL ONE (10:49)
[2020-04-19] MEDS ORDERED: Rocuronium Bromide 10 MG/ML (10ML VIAL) ONE (10:49)
[2020-04-19] MEDS ORDERED: Lidocaine 1% PF 5 ML VIAL ONE (10:49)
[2020-04-19] MEDS ORDERED: Bupivacaine HCl 0.5%/Epinephrine 1:200,000/PF 30 ml Vial ONE (10:49)
[2020-04-19] MEDS ORDERED: Dexamethasone 20 MG/5 ML VIAL ONE (10:49)
[2020-04-19] MEDS ORDERED: Glycopyrrolate 0.2 MG/ML 5 ML SYRINGE ONE (10:49)
[2020-04-19] MEDS ORDERED: Ondansetron PF 4 MG/2 ML Vial ONE (10:49)
[2020-04-19] MEDS ORDERED: Ropivacaine 0.2% HCl/PF (40 MG/20 ML VIAL) ONE (10:49)
[2020-04-19] MEDS ORDERED: Ropivacaine HCl/PF 250 ML in Premix Bag 1 BAG NERVE BLCK SCH (11:30)
--- NOTE | 2020-04-19 12:38 | OP ---
DATE OF PROCEDURE: 04/19/2020 TITLE OF PROCEDURE: Right revision total knee arthroplasty using a Radha Triathlon 6 femur with a 23-mm stem, distal 5-mm buildup, assisted with Triathlon Revision System of the tibia using a 15-mm wide x 50-mm long cemented stem with a 7 baseplate and a 16-mm TS polyethylene. DIRECTOR CLIENT: Tommy Naylor MD BLOOD LOSS: Minimal. SPECIMEN: I did send a culture and I sent a specimen for pathology, which was negative for inflammatory cells or neutrophils. DRAINS: None. COMPLICATIONS: None. TOURNIQUET TIME: About 90 minutes. DESCRIPTION OF PROCEDURE: After appropriate consent was obtained, the patient was taken to the operating room where general anesthesia was induced. Right leg was prepped and draped in the usual sterile fashion. After exsanguination, tourniquet was inflated to 300 mmHg. I used the old scar. Dissection carried down through subcutaneous tissue to the tendon. I created flaps for later closure. Medial parapatellar arthrotomy was performed. I encountered a very clear synovial fluid and blackened synovial tissue for metallosis debris. I recreated the gutters, removed the fat pad, exposed the anterior aspect of the tibia and removed the polyethylene tray. I then systematically removed the femur using oscillating saw, reciprocating saw, and osteotomes and an excellent bone stock preservation. The tibia was removed in the same way. I then cleared out the posterior aspect of the knee medially and laterally and removed the remnant of what was left of the PCL. 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 I then used intramedullary reamers to ream to 23 on the femur and 16 on the tibia. I used intramedullary guide to cut the tibia at a depth of about 4 or 5 mm below the old resection. The tibia was prepared and punched. I then used a 23-mm stem on a trial cutting block and made cuts on the femur, balancing the flexion and extension gap. The implants were as described above. Trial reduction showed good stability with a 16-mm spacer. Trials removed and irrigation was performed again. Implants were cemented into place. The patella tracked nicely on the real implant. The patella and retinaculum were repaired with #2 Vicryl and #2 Quill. Subcu closed with 0 Quill. Skin was closed with 2-0 Prolene. Sterile dressing applied. There were no complications. Job ID: [id number]
[2020-04-19] MEDS ORDERED: Ondansetron HCl/PF 4 MG/2 ML Vial IVP PRN (12:45)
[2020-04-19] MEDS ORDERED: Promethazine HCl 25 MG/ML VIAL SLOW IVP PRN (12:45)
[2020-04-19] MEDS ORDERED: Ketorolac Tromethamine 30 MG/ML VIAL ONE (13:30)
--- NOTE | 2020-04-19 14:17 | RAD ---
RIGHT KNEE TWO VIEWS: 04/19/20 INDICATION: History of right total knee prosthesis placement. COMPARISON: None. FINDINGS: There is a right constrained total knee prosthesis in place. There is intra-articular and periarticul ar soft tissue gas consistent with patient's recent postoperative state. The prosthetic components p roject in the expected position. IMPRESSION: Postoperative right knee. POS: BH
[2020-04-19] MEDS: Ketorolac Tromethamine 30 MG/ML VIAL IVP SCH ×2 (14:30→22:53)
[2020-04-19] MEDS: Sodium Chloride 0.9% 1,000 ML IV SCH ×2 (16:26→20:45)
[2020-04-19] MEDS: Losartan 25 MG TAB PO SCH (17:56)
[2020-04-19] MEDS: Carvedilol 6.25 MG TAB PO SCH (17:56)
[2020-04-19] MEDS: Mometasone 200 MCG/Formoterol 5 MCG 120 PUFF INHALER INH SCH (18:47)
[2020-04-19] MEDS ORDERED: hydrALAZINE 25 MG TAB PO PRN (19:18)
[2020-04-19] MEDS: Aspirin 81 mg Enteric Coated Tablet PO SCH (19:28)
[2020-04-19] MEDS: Atorvastatin Calcium 40 MG TAB PO SCH (19:28)
[2020-04-19] MEDS: HYDROcodone/Acetaminophen 10/325 mg Tablet PO PRN (19:29)
[2020-04-19] MEDS: Ferrous Gluconate 324 MG TAB PO SCH (22:42)
[2020-04-19] MEDS: Senokot S 8.6-50 MG TAB PO SCH (22:42)
[2020-04-19] MEDS: Acetaminophen 325 MG TAB PO PRN (22:51)
--- NOTE | 2020-04-20 02:09 | PDOC.HHP ---
Hospitalist HPI - History of Present Illness Consult for medical management History of Present Illness: Mr. Siu is a 69-year-old male with a past medical history of hypertension, hyperlipidemia, BPH, obstructive sleep apnea, coronary artery disease, COPD not on home O2, CVA who underwent a right total knee revision on 04/19/2020 with . Hospitalist service consulted for medical management of patient's chronic conditions. Patient tolerated procedure well, and is resting comfortably in bed. Patient denies any chest pain, shortness of breath, abdominal pain. Denies passing flatus or having a bowel movement yet. Hospitalist ROS - Review of Systems Constitutional: denies: fever, chills, sweats, weakness, malaise, other Eyes: denies: pain, vision change, conjunctivae inflammation, eyelid infla mmation, redness, other ENT: denies: ear pain, ear discharge, nose pain, nose discharge, nose congestion, mouth pain, mouth swelling, throat pain, throat swelling, other Respiratory: denies: cough, dry, shortness of breath, hemoptysis, SOB with excertion, pleuritic pain, sputum, wheezing, other Cardiovascular: denies: chest pain, palpitations, orthopnea, paroxysmal noc. dyspnea, edema, light headedness, other Gastrointestinal: denies: nausea, vomiting, abdominal pain, diarrhea, constipation, melena, hematochezia, other Genitourinary: denies: dysuria, frequency, incontinence, hematuria, retention, other Musculoskeletal: reports: leg pain. denies: neck pain, shoulder pain, arm pain, back pain, hand pain, foot pain, other Skin: denies: rash, lesions, geraldo, bruising, other Neurological: denies: weakness, numbness, incoordination, change in speech, confusion, seizures, other - Medication Medications: Home medications include Tizanidine O* Lexapro Carvedilol Atorvastatin Aspirin Docusate Allergy to amoxicillin Hospitalist History - Past Medical History Other Medical History: Past medical history includes Hypertension Hyperlipidemia BPH SHALONDA COPD CAD CVA - Past Surgical History Other Surgical History: Past surgical history includes Total knee replacement Laminectomy LAP-BAND Cataract Tonsillectomy Appendectomy ACF Sinus surgery - Family History Other Family History: Family history of type 2 diabetes - Social History Smoking Status: Never smoker Alcohol: reports: Rare Drugs: reports: none Living Situation: With Family Activity level: independent ambulation - Exam General Appearance: NAD, awake alert Eye: PERRL, anicteric sclera ENT: normocephalic atraumatic, no oropharyngeal lesions, moist mucosa Neck: supple, symmetric, no JVD, no thyromegaly, no lymphadenopathy, no carotid bruit Heart: RRR, no murmur, no gallops, no rubs, normal peripheral pulses Respiratory: CTAB, no wheezes, no rales, no ronchi, normal chest expansion, no tachypnea, normal percussion Gastrointestinal: soft, non-tender, non-distended, normal bowel sounds, no palpable masses, no hepatomegaly, no splenomegaly, no bruit Extremities: no cyanosis, no clubbing, no edema Extremities - other findings: Dressing clean dry intact Skin: normal turgor, no lesions, no rashes Neurological: cranial nerve grossly intact, normal sensation to touch, no weakness, no focal deficits, no new deficit Musculoskeletal: normal tone, normal strength, no muscle wasting Psychiatric: normal affect, normal behavior, A&O x 3 Hospitalist H&P A/P - Plan Plan: Status post right total knee revision 69-year-old male status post right TKR on 04/19/2020 with no complications. Patient up walking with physical therapy and doing well postoperatively. Incentive spirometry encouraged as well as bowel regimen. Plan Postop course per surgical team Incentive spirometry encouraged Bowel regimen Hypertension History of hypertension on home losartan and carvedilol. Patient hypertensive postop, even after home medications and PO hydralazine. Will add amlodipine to regimen. Plan Continue home losartan and carvedilol Add amlodipine 2.5 mg PO -Hydralazine 25 mg PO PRN BMP Hyperlipidemia Continue home statin SHALONDA History of SHALONDA we will continue home CPAP, encourage incentive spirometry. CVA history History of CVA we will continue home aspirin and statin. Patient denies any new focal deficits, but does has residual dysphasia History of COPD not on home oxygen. COPD Will make duo nebs available as needed and encourage incentive spirometry. Anxiety/depression We will continue home Lexapro. Patient denies SI HI at this time. DVT prophylaxis per surgical team Full code
[2020-04-20 02:49] LABS: #Basophils 0.1 thou/uL (0.0-0.2); #Lymphocytes 0.6 thou/uL (1.20-3.40); #Monocytes 1.5 thou/uL (0.11-0.59); #Neutrophils 15.2 thou/uL (1.40-6.50); %Basophils 0.4 % (0.0-1.0); %Eosinophils 0.1 % (0.0-10.0); %Lymphocytes 3.6 % (21.0-51.0); %Monocytes 8.8 % (0.0-10.0); %Neutrophils 87.1 % (42.0-75.0); Mean Corpuscular Hemoglobin 32.3 pg (27.0-31.0); Mean Corpuscular Volume 97.9 fL (78.0-98.0); Mean Platelet Volume 7.9 fL (7.4-10.4); Platelet Count 155 thou/uL (130-400); RBC Distribution Width 12.6 % (11.5-14.5); Red Blood Cell (RBC) Count 4.03 mill/uL (4.70-6.10); White Blood Cell (WBC) Count 17.5 thou/uL (4.8-10.8)
[2020-04-20 03:08] LABS: Anion Gap 12 mmol/L (10-20); BUN (Urea Nitrogen) 17 mg/dL (8.4-25.7); Calc. Creatinine Clearance 165 mL/min (70-130); Calcium 8.4 mg/dL (7.8-10.44); Carbon Dioxide 27 mmol/L (23-31); Chloride 102 mmol/L (98-107); Estimated GFR-MDRD Greater than 90; Glucose 157 mg/dL (80-115); Potassium 4.5 mmol/L (3.5-5.1); Sodium 136 mmol/L (136-145)
[2020-04-20] MEDS: Sodium Chloride 0.9% 1,000 ML IV SCH ×2 (06:30→15:28)
[2020-04-20] MEDS: Ketorolac Tromethamine 30 MG/ML VIAL IVP SCH ×3 (06:34→21:13)
[2020-04-20] MEDS: Mometasone 200 MCG/Formoterol 5 MCG 120 PUFF INHALER INH SCH ×2 (08:08→19:13)
[2020-04-20] MEDS: Amlodipine 5 MG TAB PO SCH (08:11)
[2020-04-20] MEDS: Aspirin 81 mg Enteric Coated Tablet PO SCH ×2 (08:11→21:12)
[2020-04-20] MEDS: Docusate 100 MG CAP PO SCH (08:11)
[2020-04-20] MEDS: Carvedilol 6.25 MG TAB PO SCH ×2 (08:11→21:12)
[2020-04-20] MEDS: Ferrous Gluconate 324 MG TAB PO SCH ×2 (08:12→21:12)
[2020-04-20] MEDS: Multivitamin W/ Minerals 1 TAB PO SCH (08:12)
[2020-04-20] MEDS: Losartan 25 MG TAB PO SCH ×2 (08:12→21:12)
[2020-04-20] MEDS: Tamsulosin HCl 0.4 MG CAP PO SCH (08:12)
[2020-04-20] MEDS: Senokot S 8.6-50 MG TAB PO SCH ×2 (08:12→21:12)
[2020-04-20] MEDS: Escitalopram Oxalate 10 mg Tablet PO SCH (08:12)
[2020-04-20] MEDS: HYDROcodone/Acetaminophen 10/325 mg Tablet PO PRN (08:17)
--- NOTE | 2020-04-20 08:45 | PRG ---
DATE OF SERVICE: 04/20/2020 SUBJECTIVE: Lalo is a 69-year-old male, who is postop day #1 from a right total knee arthroplasty. He is doing relatively well. He has no complaints. OBJECTIVE: VITAL SIGNS: Temperature 97.8, pulse 80, respiratory rate 18, blood pressure 136/78. GENERAL: He is alert and oriented to person, place, time, and situation. Responsive and appropriate with examiner. His incision is clean and dry. No strike through. No erythema. He is neurovascularly intact in the right lower extremity. LABORATORY DATA: Hemoglobin and hematocrit 13.0 and 39.5. He does have an elevated white cell count at 17.5. IMPRESSION: 1. A 69-year-old male postop day #1 right total knee arthroplasty, doing well. 2. Leukocytosis. PLAN: Continue current care, close observation, pain control, observe for signs of infection due to elevated white count. This may be a reactive leukocytosis. Give consideration to discharge home tomorrow. Job ID: [id number]
[2020-04-20] MEDS: Fluticasone Propionate Nasal Spray 16 gm Bottle NASAL SCH (09:42)
[2020-04-20] MEDS: Atorvastatin Calcium 40 MG TAB PO SCH (21:12)
[2020-04-21] MEDS: Sodium Chloride 0.9% 1,000 ML IV SCH ×2 (03:12→12:16)
[2020-04-21] MEDS: Acetaminophen 325 MG TAB PO PRN (03:15)
[2020-04-21] MEDS: Ketorolac Tromethamine 30 MG/ML VIAL IVP SCH ×2 (05:33→13:51)
[2020-04-21] MEDS: Mometasone 200 MCG/Formoterol 5 MCG 120 PUFF INHALER INH SCH (07:26)
[2020-04-21] MEDS: HYDROcodone/Acetaminophen 10/325 mg Tablet PO PRN ×2 (08:04→14:47)
[2020-04-21] MEDS: Senokot S 8.6-50 MG TAB PO SCH (08:05)
[2020-04-21] MEDS: Multivitamin W/ Minerals 1 TAB PO SCH (08:05)
[2020-04-21] MEDS: Escitalopram Oxalate 10 mg Tablet PO SCH (08:05)
[2020-04-21] MEDS: Amlodipine 5 MG TAB PO SCH (08:05)
[2020-04-21] MEDS: Aspirin 81 mg Enteric Coated Tablet PO SCH (08:05)
[2020-04-21] MEDS: Docusate 100 MG CAP PO SCH (08:06)
[2020-04-21] MEDS: Tamsulosin HCl 0.4 MG CAP PO SCH (08:06)
[2020-04-21] MEDS: Losartan 25 MG TAB PO SCH (08:06)
[2020-04-21] MEDS: Fluticasone Propionate Nasal Spray 16 gm Bottle NASAL SCH (08:06)
[2020-04-21] MEDS: Carvedilol 6.25 MG TAB PO SCH (08:06)
[2020-04-21] MEDS: Ferrous Gluconate 324 MG TAB PO SCH (08:06)
[2020-04-21 09:02] LABS: #Basophils 0.1 thou/uL (0.0-0.2); #Eosinphils 0.4 thou/uL (0.0-0.7); #Monocytes 1.5 thou/uL (0.11-0.59); #Neutrophils 8.4 thou/uL (1.40-6.50); %Basophils 0.5 % (0.0-1.0); %Eosinophils 3.1 % (0.0-10.0); %Lymphocytes 16.2 % (21.0-51.0); %Monocytes 11.9 % (0.0-10.0); %Neutrophils 68.4 % (42.0-75.0); Mean Corpuscular HGB CONC 32.6 g/dL (32.0-36.0); Mean Corpuscular Hemoglobin 32.2 pg (27.0-31.0); Mean Corpuscular Volume 98.8 fL (78.0-98.0); Mean Platelet Volume 8.3 fL (7.4-10.4); Platelet Count 136 thou/uL (130-400); RBC Distribution Width 12.8 % (11.5-14.5); Red Blood Cell (RBC) Count 3.72 mill/uL (4.70-6.10); White Blood Cell (WBC) Count 12.3 thou/uL (4.8-10.8)
[2020-04-21 12:49] VITALS: BP 147/80; TEMP 97.9
--- NOTE | 2020-04-21 22:35 | PDOC.HOSPP ---
- Subjective Encounter Date: 04/21/20 Encounter Time: 09:00 Subjective: Patient was seen and examined in bed. He denied any chest pain shortness of breath. Pain in his right knee had improved - Objective Vital Signs & Weight: Vital Signs (12 hours) Temp Pulse Resp BP Pulse Ox 04/21/20 12:00 97.9 F 88 14 147/80 H 94 L Weight Admit Weight 296 lb Weight 296 lb I&O: 04/20/20 04/21/20 04/22/20 06:59 06:59 06:59 Intake Total 1940 2590 780 Output Total 200 2700 500 Balance 1740 -110 280 Result Diagrams: 04/21/20 08:41 04/20/20 02:40 - Exam Eye: PERRL, anicteric sclera Heart: no murmur, no gallops, normal peripheral pulses Respiratory: no wheezes, no rales, no ronchi, normal chest expansion Gastrointestinal: soft, non-tender, non-distended, normal bowel sounds Extremities: no cyanosis, no clubbing, no edema Extremities - other findings: Right knee dressed Neurological: cranial nerve grossly intact, no weakness Psychiatric: normal affect, normal behavior, A&O x 3 Hosp A/P - Plan 69-year-old male patient status post right TKR on 04/19/2020. He is okay for discharge from medical standpoint S/p TKR He is generally stable Likely discharge today Hypertension Blood pressure stable Continue home meds. Hyperlipidemia Continue statins SHALONDA CPAP COPD Stable
--- NOTE | 2020-04-22 11:03 | DIS ---
DATE OF ADMISSION: 04/19/2020 DATE OF DISCHARGE: 04/21/2020 This is Sean Levy PA-C dictating a report for Bruno Calix MD. PREOPERATIVE DIAGNOSIS: Right knee hardware failure. POSTOPERATIVE DIAGNOSIS: Right knee hardware failure. PROCEDURE PERFORMED: The patient underwent a right total knee revision. HOSPITAL STAY: Unremarkable. Admitted to [address], where they worked with staff, Physical therapy, Occupational therapy, and progressed quite well. His postop stay was unremarkable. He had no complications. DISCHARGE CONDITION: Good/stable. DISPOSITION: Home. FOLLOWUP: Would be in 2 to 4 weeks or sooner if there are problems or concerns. DISCHARGE MEDICATIONS: Given with usage instructions. Job ID: [id number]
== END 2020-04-21 15:00 | disposition home or self-care (01) | DRG 468 ==
LOC: SJJU 04-19 08:29 → SURG A 04-19 15:01
PROVIDERS: ADMIT Orthopaedic Surgery; ATTEND Orthopaedic Surgery
PROC: 0SRC0J9 Replacement of Right Knee Joint with Synthetic Substitute, Cemented, Open Approach (ICD-10-PCS; principal; 2020-04-19)
PROC: 0SPC0JZ Removal of Synthetic Substitute from Right Knee Joint, Open Approach (ICD-10-PCS; 2020-04-19)
PROC: 3E0234Z Introduction of Serum, Toxoid and Vaccine into Muscle, Percutaneous Approach (ICD-10-PCS; 2020-04-20)
DX: S83.521A Sprain of posterior cruciate ligament of right knee, initial encounter (principal); N40.0 Benign prostatic hyperplasia without lower urinary tract symptoms; I10 Essential (primary) hypertension; E78.5 Hyperlipidemia, unspecified; Z96.651 Presence of right artificial knee joint; G47.33 Obstructive sleep apnea (adult) (pediatric); I25.10 Atherosclerotic heart disease of native coronary artery without angina pectoris; J44.9 Chronic obstructive pulmonary disease, unspecified; Z20.828 Contact with and (suspected) exposure to other viral communicable diseases; F41.9 Anxiety disorder, unspecified; F32.9 Major depressive disorder, single episode, unspecified; W18.30XA Fall on same level, unspecified, initial encounter; D72.829 Elevated white blood cell count, unspecified; Z79.899 Other long term (current) drug therapy; Z98.84 Bariatric surgery status; Z86.73 Personal history of transient ischemic attack (TIA), and cerebral infarction without residual deficits; Z23 Encounter for immunization; Z79.82 Long term (current) use of aspirin; Z88.1 Allergy status to other antibiotic agents
CPT/HCPCS: 36415; 80048; 85025; 87070; 87205; 88305; 88331; 88334; 90471; 90732; C1713; C1776; G0009; J1100; J1885; J1956; J2001; J2250; J2405; J2704; J2795; J3010; J3490

== ENCOUNTER 2020-05-26 09:49 | Outpatient (CLI) | payer MEDICARE ==
--- NOTE | 2020-05-27 08:29 | PET ---
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 CORRELATION: MRI brain dated 08/13/2019 Radiopharmaceutical: 8.4 mCi [id number] injected intravenously FINDINGS: No abnormal areas of tracer localization are seen. No hypometabolism is noted in the tempor oparietal regions to suggest Alzheimer's dementia. IMPRESSION: Normal exam.
== END 2020-05-26 09:50 | disposition home or self-care (01) ==
LOC: PET 09:49
PROVIDERS: ATTEND Psychiatry & Neurology Neurology
DX: I66.02 Occlusion and stenosis of left middle cerebral artery (principal)
CPT/HCPCS: 78803; A9552

== ENCOUNTER 2020-10-19 19:00 | Outpatient (CLI) | payer MEDICARE | END 2020-10-19 19:01 | disposition home or self-care (01) | LOC: SLEEPLAB 19:00 | PROVIDERS: ATTEND Internal Medicine Pulmonary Disease | DX: G47.33 Obstructive sleep apnea (adult) (pediatric) (principal) | CPT/HCPCS: 95810 ==

== ENCOUNTER 2020-11-11 12:54 | Outpatient (CLI) | payer MEDICARE ==
[~2020-11-11 12:54] MED LIST: Iopamidol 370 76% 100 ML VIAL ONE
== END 2020-11-11 12:55 | disposition home or self-care (01) ==
LOC: CT 12:54
PROVIDERS: ATTEND Internal Medicine Cardiovascular Disease
DX: R06.00 Dyspnea, unspecified (principal)
CPT/HCPCS: 71275; 82565

== ENCOUNTER 2020-11-23 13:33 | Outpatient (CLI) | payer MEDICARE | END 2020-11-23 13:34 | disposition home or self-care (01) | LOC: TBSIIMAG 13:33 | PROVIDERS: ATTEND Orthopaedic Surgery | DX: S83.242A Other tear of medial meniscus, current injury, left knee, initial encounter (principal); M25.462 Effusion, left knee; M76.52 Patellar tendinitis, left knee; M94.8X6 Other specified disorders of cartilage, lower leg ==

== ENCOUNTER 2020-12-29 13:59 | Outpatient (CLI) | payer MEDICARE ==
[2020-12-29 15:45] LABS: #Basophils 0.1 10x3/uL (0.0-0.2); #Eosinphils 0.3 10x3/uL (0.0-0.5); #Monocytes 0.8 10x3/uL (0.0-1.1); #Neutrophils 4.7 10x3/uL (1.5-8.4); %Basophils 0.7 % (0.0-2.0); %Eosinophils 4.1 % (0.0-6.0); %Lymphocytes 21.2 % (18.0-47.0); %Monocytes 10.9 % (0.0-10.0); %Neutrophils 62.7 % (40.0-75.0); Hemoglobin 14.3 g/dL (13.5-17.5); Mean Corpuscular HGB CONC 32.2 g/dL (32.0-36.0); Mean Corpuscular Hemoglobin 30.9 pg (27.0-33.0); Mean Corpuscular Volume 95.9 fl (81.2-95.1); Mean Platelet Volume 10.2 fl (7.4-10.4); Platelet Count 216 10x3/uL (150-450); RBC Distribution Width 12.5 % (11.5-14.5); Red Blood Cell (RBC) Count 4.63 10x6/uL (4.32-5.72); White Blood Cell (WBC) Count 7.5 10x3/uL (3.5-10.5)
[2020-12-29 15:56] LABS: Prothrombin Time 10.6 sec (9.5-12.1)
[2020-12-29 16:00] LABS: Anion Gap 15 mmol/L (10-20); BUN (Urea Nitrogen) 14 mg/dL (8.4-25.7); Calc. Creatinine Clearance 0 mL/min (70-130); Calcium 9.6 mg/dL (7.8-10.44); Carbon Dioxide 26 mmol/L (23-31); Chloride 103 mmol/L (98-107); Glucose 100 mg/dL (80-115); Sodium 140 mmol/L (136-145)
[2020-12-29 18:09] LABS: Bilirubin Neg (Negative); Blood, Urine Negative (Negative); Clarity Clear (Clear); Glucose, Urine (Dipstick) Normal (Negative); Ketone, Urine Negative (Negative); Leukocyte Negative (Negative); Nitrite Negative (Negative); Protein, Urine (Dipstick) Negative (Neg-Trace); Specific Gravity, Urine 1.015 (1.002-1.036); Urobilinogen Normal mg/dL (Less than 2)
[2020-12-29 18:20] LABS: Bacteria/HPF None Seen HPF (None Seen); RBC/HPF None Seen HPF (0-3); Squamous Epithelial None Seen HPF (0-3); WBC/HPF None Seen HPF (0-3)
== END 2020-12-29 14:00 | disposition home or self-care (01) ==
LOC: LABBT 13:59
PROVIDERS: ATTEND Orthopaedic Surgery
DX: Z01.818 Encounter for other preprocedural examination (principal); M17.12 Unilateral primary osteoarthritis, left knee
CPT/HCPCS: 80048; 81001; 85025; 85610; 87081; 93005; 93010

== ENCOUNTER 2021-02-28 12:36 | Outpatient (CLI) | payer MEDICARE | END 2021-02-28 12:37 | disposition home or self-care (01) | LOC: BICRAD 12:36 | PROVIDERS: ATTEND Internal Medicine Pulmonary Disease | DX: R06.00 Dyspnea, unspecified (principal) | CPT/HCPCS: 71046 ==

== ENCOUNTER 2021-04-10 09:20 | Outpatient (CLI) | payer MEDICARE | END 2021-04-10 09:21 | disposition home or self-care (01) | LOC: RAD-FRANK 09:20 | PROVIDERS: ATTEND Nurse Practitioner Family | DX: N64.4 Mastodynia (principal) | CPT/HCPCS: 71046 ==

== ENCOUNTER 2021-05-23 13:53 | Outpatient (CLI) | payer MEDICARE | END 2021-05-23 13:54 | disposition home or self-care (01) | LOC: BICMAMMO 13:53 | PROVIDERS: ATTEND Specialist | DX: N64.4 Mastodynia (principal); N63.10 Unspecified lump in the right breast, unspecified quadrant | CPT/HCPCS: 77066; G0279 ==

== ENCOUNTER 2022-04-17 07:26 | Outpatient (CLI) | payer MEDICARE ==
[2022-04-17] MEDS ORDERED: Iopamidol 370 76% 100 ML VIAL ONE (08:48)
== END 2022-04-17 07:27 | disposition home or self-care (01) ==
LOC: CT 07:26
PROVIDERS: ATTEND Psychiatry & Neurology Neurology
DX: I66.02 Occlusion and stenosis of left middle cerebral artery (principal)
CPT/HCPCS: 70496; 70498; 70551; 82565

== ENCOUNTER 2022-05-08 10:33 | Outpatient (CLI) | payer MEDICARE | END 2022-05-08 10:34 | disposition home or self-care (01) | LOC: RAD-FRANK 10:33 | PROVIDERS: ATTEND Nurse Practitioner Family | DX: R05.9 Cough, unspecified (principal) | CPT/HCPCS: 71046 ==